=== PATIENT | male | born 1985 | race Caucasian/White ===

== ENCOUNTER 2016-08-15 14:47 | Inpatient (IN) | payer BC, MEDICAID ==
--- NOTE | ~2016-08-15 | HP ---
Unit #: [id number] #: [id number] Patient: RICHARD PATEL [id number] [place] [address] [id number] MR#: [id number] NAME: RICHARD PATEL ROOM: 73 Age: 31 Sex: M Admission Date: 08/15/2016 : 1985 Attending Physician: Michael Pugh M.D. Admitting Physician: Michael Pugh M.D. Primary Care Physician: Generic Doctor Not In System HISTORY AND PHYSICAL HISTORY OF PRESENT ILLNESS Richard is a 31-year-old male admitted on 08/15/2016 to [facility] for detox from heroin and meth. PAST MEDICAL HISTORY None. PAST SURGICAL HISTORY None. ALLERGIES None. SOCIAL HISTORY Smokes 1 pack of cigarettes daily. No alcohol use. Does report daily use of heroin and meth. He is currently single and living with his parents. FAMILY HISTORY Noncontributory. REVIEW OF SYSTEMS CONSTITUTIONAL: No fever or chills. HEENT: Denies any sore throat, ear pain or runny nose. CARDIOVASCULAR: Denies chest pain, irregular heart rhythm or palpitations. CHEST: Denies shortness of breath or cough. No hemoptysis. GASTROINTESTINAL: Denies nausea, vomiting, diarrhea or chronic constipation. ENDOCRINE: Denies history of increased thirst or urination. No recent significant weight loss or gain. GENITOURINARY: Denies dysuria, frequency, or hematuria. SKIN: Denies any rashes. HEMATOLOGIC: Denies history of increased bleeding or bruising. MUSCULOSKELETAL: Denies any hot, swollen joints. No generalized muscle pain. NEUROLOGIC: Denies problems with vision or speech. No frequent, severe headaches. No numbness, tingling or weakness in any extremities. Denies loss of bladder or bowel control. CURRENT MEDICATIONS None. PHYSICAL EXAMINATION GENERAL: Alert, oriented, in no acute distress. Unit #: [id number] #: [id number] Patient: RICHARD PATEL VITAL SIGNS: Blood pressure 113/61, heart rate 72, respirations 16, temperature 98.0. HEIGHT: 5 feet 3. WEIGHT: 174 pounds. SKIN: Warm and dry without rash or lesion. HEENT: Normocephalic. TMs not viewed. Oral and nasal passages clear. Conjunctivae clear. PERRLA. EOMs intact. NECK: Supple without lymphadenopathy or thyromegaly. HEART: Regular rate and rhythm without murmur. LUNGS: Clear. ABDOMEN: Soft, nontender, without masses or hepatosplenomegaly. : Not done. EXTREMITIES: No evidence of cyanosis, clubbing or edema. Moves all without focal deficit. NEUROLOGICAL: Grossly within normal limits. Cranial Nerves: II: Visual flores are intact. III, IV AND : Extraocular movements are intact. Pupils are equal, round and reactive to light. V: Facial sensation is grossly normal. VII: Facial movements and expression are normal. VIII: Auditory acuity grossly intact. IX, X: Uvula is midline. Phonation is normal. XI: Patient shrugs shoulders and turns head normally. XII: Tongue protrudes in the midline. Sensory and Motor Function: Sensory and motor sensation is grossly normal. Motor: moves all extremities well. Coordination: Gait is normal. Deep Tendon Reflexes: Intact. IMPRESSION Psychiatric admission. RECOMMENDATIONS PSYCHIATRIC: Per psychiatrist. MEDICAL: No contraindications to participate in facility's activities. MEDICAL PROGNOSIS Good. MEDICAL CONDITION Stable. Dictated by... Gail Hendricks/topher TD: 08/16/2016 18:41 JOB #: [id number] Unit #: [id number] #: [id number] Patient: RICHARD PATEL HISTORY AND PHYSICAL Page 1 of 1 X AWILDA SERNA APRN HISTORY AND PHYSICAL
--- NOTE | ~2016-08-15 | PN ---
Unit #: [id number] #: [id number] Patient: RODRIGO PATEL [id number] [facility] [address] [place] [address] [id number] MR#: [id number] NAME: RODRIGO PATEL ROOM: [facility] Age: 31 Sex: M Admission Date: 08/15/2016 : 1985 Attending Physician: Michael Pugh M.D. Admitting Physician: Michael Pugh M.D. Primary Care Physician: Generic Doctor Not In System [facility] PROGRESS NOTES DATE 08/16/2016 DISCUSSION Mr. Patel is a 31-year-old male seen on 08/16/2016. Patient interviewed. Chart reviewed. Obtained information from nursing staff. Patient was compliant, cooperative. Mood labile, sad, dysphoric, anxious. Patient adjusting fairly well to unit rules. Patient's vital signs 98.1, 69, 16, 110/51, height 5 feet 3 inches, weight 174 pounds. MENTAL STATUS EXAMINATION General appearance, patient dressed casually. Patient did not show any facial deformity. Attention span, concentration fair. Oriented in place and person. Mood and affect labile. Speech monotone. Thought process concrete. Patient denied any thoughts of harming self or others. Recent and remote memory poor. Insight and judgement poor. DIAGNOSES 1. Opiate use disorder, severe. 2. Amphetamine use disorder, severe. 3. Mood disorder NOS. ASSESSMENT/PLAN Advised to continue with current detox protocol. If needed, consider medication such as SSRI, Celexa. Continue with the inpatient programming. Dictated by... Chela Jama/topher TD: 08/16/2016 21:31 JOB #: [id number] Unit #: [id number] #: [id number] Patient: RODRIGO PATEL PROGRESS NOTES Page 1 of 1 X Michael Puhg MD X PROGRESS NOTE
--- NOTE | ~2016-08-15 | DS ---
Unit #: [id number] #: [id number] Patient: RODRIGO PATEL [id number] [place] [address] [id number] MR#: [id number] NAME: RODRIGO PATEL ROOM: 73 Age: 31 Sex: M Admission Date: 08/15/2016 : 1985 Discharge Date: 08/18/2016 Attending Physician: Michael Pugh M.D. Primary Care Physician: Generic Doctor Not In System DISCHARGE SUMMARY REASON FOR ADMISSION Detox. DIAGNOSTIC STUDIES Laboratory data, unremarkable. HOSPITAL COURSE The patient was admitted to the inpatient unit, on August 15 and discharged on August 18, 2016. The patient was treated with behavior management, chemical dependency group, expressive therapy. The patient was subsequently discharged with the plan to follow up in outpatient program. DISCHARGE DIAGNOSES [place] I Opiate use disorder, severe, F11.20. Amphetamine use disorder, moderate. Mood disorder, NOS. Major depressive disorder, recurrent, F33.2. [place] II Deferred. [place] III None. [place] IV Psychosocial stressor. [place] V INSTRUCTIONS TO PATIENT The patient is to follow up in outpatient clinic as well as delinquency prevention social worker. DISCHARGE MEDICATIONS 1. Desyrel 50 mg at bedtime for sleep 2. Wellbutrin XL 150 mg daily for depression CONDITION AT DISCHARGE The patient is pleasant and cooperative, denied any psychotic symptoms or any suicidal ideation. PROGNOSIS Guarded. DIET AND ACTIVITY Diet and activity as tolerated. Unit #: [id number] #: [id number] Patient: RODRIGO PATEL Dictated by... Chela Jama/allen TD: 08/19/2016 12:10 JOB #: [id number] DISCHARGE SUMMARY Page 1 of 1 X Michael Pugh MD X DISCHARGE SUMMARY
--- NOTE | ~2016-08-15 | PA ---
Unit #: [id number] #: [id number] Patient: RICHARD PATEL [id number] [facility] [address] [place] [address] [id number] MR#: [id number] NAME: RICHARD PATEL ROOM: P173 Age: 31 Sex: M Admission Date: 08/15/2016 : 1985 Date of Assessment: Attending Physician: Michael Pugh M.D. Admitting Physician: Michael Pugh M.D. Primary Care Physician: Generic Doctor Not In System PSYCHIATRIC ASSESSMENT INFORMANTS The patient reliability, fair informant and chart reliability, good. CHIEF COMPLAINT Detox from heroin. HISTORY OF PRESENT ILLNESS Mr. Richard Patel is a 31-year-old male, presented with the above-mentioned complaint from opioid and amphetamine detox. The patient has a history of previous treatment three times at [facility] on 07/19/2015. The patient has three children, currently at his parents house. The patient reported needing help with detox. The patient reported using half a gram of heroin daily by nasally. The patient reported also using once every few weeks. The patient reported that he had 9 months of sobriety and relapsed in this year. The patient reports that he wants to get clean. The patient reports he stopped taking his depression medication and was prescribed due to his feeling suicidal. The patient reported current withdrawal symptoms. The patient scored 15 on COWS score. Currently, denied any suicidal or homicidal ideation, but feeling sad and depressed. Denied any psychotic symptom. The patient reported tobacco use, age of onset 17; alcohol, age of onset 17; marijuana, age of onset 17; opioid, age of onset 23; and amphetamine, age of onset 27. Longest period of sobriety 9 months, last period of sobriety 3 months. The patient denied any history of blackout, IV drug use, HIV, or hepatitis, but withdrawal symptoms such as hot and cold chills, depressed mood, vomiting, runny nose, diarrhea, and abdominal cramping. Needing inpatient admission at this time for psychiatric stabilization. PAST PSYCHIATRIC HISTORY Remarkable for history of previous treatment at [facility] in 2016 as mentioned above. FAMILY HISTORY AND SOCIAL HISTORY The patient has a good support system. No history of abuse. No history of any legal problems. There is a family history of substance abuse in the family. MEDICAL HISTORY Unremarkable for any chronic medical illness. Musculoskeletal; muscle strength and tone, no atrophy or abnormal movement. Gait normal. MEDICATION HISTORY None. Unit #: [id number] #: [id number] Patient: RICHARD PATEL ALLERGIES No known drug allergies. SUBSTANCE ABUSE HISTORY Please see above. REVIEW OF SYSTEMS HEENT: Eyes, clear. Ears, nose, mouth, and throat; clear. CARDIOVASCULAR: Unremarkable. RESPIRATORY: Unremarkable. GI: Unremarkable. : Unremarkable. SKIN: Unremarkable. LYMPH NODE: Unremarkable. NEUROLOGIC: Unremarkable. ENDOCRINE: Unremarkable. HEMATOLOGIC: Unremarkable. ALLERGIC/IMMUNOLOGIC: Unremarkable. MUSCULOSKELETAL: Muscle strength and tone, no atrophy or abnormal movement. Gait normal. MENTAL STATUS EXAMINATION CONSTITUTIONAL: Measurement of vital signs; temperature 98.0, heart rate 72, respiratory rate 16, and blood pressure 113/61. Height 5 feet 3 inches and weight 174 pounds. GENERAL APPEARANCE: The patient dressed casually. The patient did not show any facial deformity. MUSCULOSKELETAL: Please see above. PSYCHIATRIC EXAMINATION Description of speech; regular rate, normal volume, normal articulation, and coherent. Description of thought process, goal directed. Description of association, intact. Description of abnormal psychotic thinking; the patient denied any hallucinations or delusions, but mood lability, sad, depressed, and substance abuse. Description of the patient's judgment: Concerning everyday activity, poor. Social situation, poor. Concerning psychiatric condition, poor. Complete mental status examination; oriented in time, place, and person. Recent and remote memory, fair. Attention span and concentration, fair. Language, able to name object and repeat phrases. Fund of knowledge, aware of current event and passive vocabulary intact. Mood and affect, sad and dysphoric. Insight and judgment, fair to poor. ASSETS AND LIABILITIES Assets, the patient is articulate and able to take care of his ADL. Liability, history of substance abuse. ADMITTING DIAGNOSES Psychiatric: Opioid use disorder, severe, F11.20; amphetamine use disorder, moderate to severe, F15.20; and major depressive disorder, recurrent, severe, F33.2. Secondary diagnosis: Deferred. Medical diagnosis: None. Unit #: [id number] #: [id number] Patient: RICHARD PATEL Stressors: Psychosocial stressor. PSYCHIATRIC PLAN AND TREATMENT GOAL AND DISCHARGE PLAN 1. Advised to admit the patient on the inpatient unit. Provide safe, supportive, and structured environment. 2. Ordered labs; CBC, CMP, UA, and UDS. 3. Detox protocol and detox monitoring. If needed, consider further adjustment of medication and consider SSRI if needed. TREATMENT GOAL To attain euthymic mood. The patient to gain insight into his problem and learn coping skills. The patient to attend all the programing on the inpatient unit including group therapy, individual therapy, and chemical dependency group. DISCHARGE PLAN Plan to stabilize the patient and consider followup in outpatient program. ESTIMATED LENGTH OF STAY 3 to 5 days. Dictated by... Michael Pugh M.D. CLEMENTE/juan TD: 08/16/2016 16:08 JOB #: [id number] PSYCHIATRIC ASSESSMENT Page 1 of 1 X Michael Pugh MD X PSYCHIATRIC ASSESSMENT
--- NOTE | ~2016-08-15 | PN ---
Unit #: [id number] #: [id number] Patient: RICHARD PATEL [id number] [facility] [address] [place] [address] [id number] MR#: [id number] NAME: RICHARD PATEL ROOM: [facility] Age: 31 Sex: M Admission Date: 08/15/2016 : 1985 Attending Physician: Michael Pugh M.D. Admitting Physician: Michael Pugh M.D. Primary Care Physician: Generic Doctor Not In System [facility] PROGRESS NOTES DATE OF SERVICE 08/17/16 DISCUSSION Richard Patel is a 31-year-old male seen on 08/17/16. Patient interviewed, chart reviewed, I obtained information from nursing staff. Patient reports that detox symptoms are getting better. Mood sad, dysphoric, anxious. Patient denied any thoughts of harming self or others. Patient's vital signs: 98.0, 88, 16, 110/60 COMPLETE REVIEW OF SYSTEMS Unremarkable. MENTAL STATUS EXAMINATION GENERAL APPEARANCE: Patient dressed casually. ATTENTION SPAN AND CONCENTRATION: Fair. Oriented in place and person. MOOD AND AFFECT: Labile. SPEECH: Monotone. THOUGHT PROCESS: Harper. Patient denied any thoughts of harming self or others, but seclusive, isolative, guarded. INSIGHT AND JUDGMENT: [id number]. DIAGNOSES Opiate use disorder, severe Amphetamine use disorder, severe Mood disorder, NOS ASSESSMENT/PLAN Advised to continue with current medication and therapeutic protocol. If needed, consider further adjustment in medication. Dictated by... Chela Jama/zenia TD: 08/17/2016 22:34 JOB #: [id number] Unit #: [id number] #: [id number] Patient: RICHARD PATEL PROGRESS NOTES Page 1 of 1 X Michael Pugh MD PROGRESS NOTE
[2016-08-16 12:19] LABS: BASOPHIL# 0.1 X10e3 (0-0.3); BASOPHIL% 0.5 % (0-2.5); EOSINOPHIL# 0.6 X10e3 (0-0.7); EOSINOPHIL% 5.3 % (0.0-7.0); HEMOGLOBIN 15.7 gm/dL (13.0-16.0); LYMPHOCYTE% 27.4 % (17.0-45.0); MEAN CELL VOLUME 86.8 FL (83-96); MEAN CORPUSCULAR HEMOGLOBIN 28.4 PG (28-34); MEAN CORPUSCULAR HGB CONC 32.7 g/dL (30-36); MEAN PLATELET VOLUME 10.1 FL (6.5-11.5); MONOCYTE# 0.9 X10e3 (0-1.0); MONOCYTE% 7.8 % (3.0-12.0); NEUTROPHIL# 6.5 X10e3 (1.5-7.1); PLATELET COUNT 239 X10e3 (140-420); RED BLOOD COUNT 5.53 X10e (3.90-5.60); RED CELL DISTRIBUTION WIDTH 13.3 % (11.0-15.5)
[2016-08-16 12:22] LABS: DIFF IND NO
[2016-08-16 12:43] LABS: BILIRUBIN,TOTAL 0.2 mg/dL (0.2-2.0); CALCIUM SERUM 9.4 mg/dL (8.4-10.2); CREATININE SERUM 0.8 mg/dL (0.6-1.4); GLOM FILT RATE Estimated 120.8 mL/min (>60); POTASSIUM 4.5 mmol/L (3.5-5.1); PROTEIN TOTAL SERUM 6.4 g/dL (6.0-8.3)
== END 2016-08-18 11:20 | DRG 897 ==
LOC: P1E 17:12
PROVIDERS: Psychiatry & Neurology Psychiatry
PROC: HZ2ZZZZ Detoxification Services for Substance Abuse Treatment (ICD-10-PCS; principal; 2016-08-15)
DX: F11.20 Opioid dependence, uncomplicated (principal); F33.2 Major depressive disorder, recurrent severe without psychotic features; F15.20 Other stimulant dependence, uncomplicated; F39 Unspecified mood [affective] disorder; F17.210 Nicotine dependence, cigarettes, uncomplicated
CPT/HCPCS: 80053; 85025; 86592